=== PATIENT | female | born 1965 | race Caucasian/White ===

== ENCOUNTER 2018-10-22 08:40 | Inpatient (IN) | payer BC ==
[~2018-10-22] VITALS: Ht 172.7 cm; Wt 57.7 kg
[2018-10-24 08:47] VITALS: BP 117/76
== END 2018-10-24 13:05 | disposition home or self-care (01) | DRG 470 ==
LOC: ORIP 08:40 → 4NOR 14:08
PROVIDERS: ADMIT Orthopaedic Surgery; ATTEND Orthopaedic Surgery
PROC: 0SR906A Replacement of Right Hip Joint with Oxidized Zirconium on Polyethylene Synthetic Substitute, Uncemented, Open Approach (ICD-10-PCS; principal; 2018-10-22)
PROC: 0SP904Z Removal of Internal Fixation Device from Right Hip Joint, Open Approach (ICD-10-PCS; 2018-10-22)
DX: T84.114A Breakdown (mechanical) of internal fixation device of right femur, initial encounter (principal); M96.89 Other intraoperative and postprocedural complications and disorders of the musculoskeletal system; Y83.8 Other surgical procedures as the cause of abnormal reaction of the patient, or of later complication, without mention of misadventure at the time of the procedure; Z88.8 Allergy status to other drugs, medicaments and biological substances; Y92.89 Other specified places as the place of occurrence of the external cause; Z82.3 Family history of stroke
CPT/HCPCS: 36415; 72170; 80053; 83036; 85014; 85018; 85025; 85610; 85730; 87081; 93005; C1713; G0378; J0171; J0690; J1100; J1170; J1885; J2250; J2405; J2704; J2710; J2795; J3010; J3370; J3480; Q0162; C1776; J0330; J2370; J7120